=== PATIENT | female | born 2000 | race African-American/Black ===

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

== ENCOUNTER 2019-01-18 15:46 | Inpatient (IN) | payer OTHER ==
[~2019-01-18] VITALS: Ht 160 cm; Wt 78.6 kg
[~2019-01-18 15:46] MED LIST: ALBU8HFA IH; QUET25TA34 PO; QUET50TA PO
[2019-01-18 16:32] LABS: BASOPHILS % (AUTO) 0.7 % (0.0-2.0); EOSINOPHILS % (AUTO) 0.6 % (1.0-6.0); HEMATOCRIT 37.6 % (36-46); HEMOGLOBIN 12.1 g/dL (12.0-16.0); LYMPHOCYTES # (AUTO) 3.8 K/uL (1.0-4.8); LYMPHOCYTES % (AUTO) 38.4 % (22.0-44.0); MEAN CORPUSCULAR HEMOGLOBIN 28.5 pg (26.0-34.0); MEAN CORPUSCULAR HGB CONC 32.3 G/dL (31.0-37.0); MEAN CORPUSCULAR VOLUME 88 fL (80-100); MONOCYTES # (AUTO) 0.6 K/uL (0.1-1.0); MONOCYTES % (AUTO) 5.9 % (2.0-9.0); NEUTROPHILS # (AUTO) 5.4 K/uL (1.8-7.7); NEUTROPHILS % (AUTO) 54.4 % (40.0-70.0); PLATELET COUNT (AUTO) 307 K/uL (150-450); RED BLOOD CELL COUNT(AUTO) 4.26 MIL/uL (4.00-5.20); RED CELL DISTRIBUTION WIDTH 15.2 % (11.5-14.5)
[2019-01-18 16:41] LABS: ANION GAP 9 mmol/L (8-16); CALCIUM, TOTAL 9.1 mg/dL (8.8-10.5); CARBON DIOXIDE 25 mmol/L (22-29); CHLORIDE 106 mmol/L (98-107); CREATININE 0.74 mg/dL (0.60-1.30); GLOMERULAR FILTR. RATE CALC > 60 mL/min (>60); GLUCOSE,RANDOM 72 mg/dL (70-110); POTASSIUM 3.6 mmol/L (3.5-5.1); SODIUM SERUM 140 mmol/L (136-145); UREA NITROGEN, BLOOD 7 mg/dL (7-18)
[2019-01-18 16:49] LABS: ALANINE AMINOTRANSFERASE 21 U/L (12-78); ALBUMIN 3.2 g/dL (3.4-5.0); ALKALINE PHOSPHATASE 92 U/L (46-116); ASPARTATE AMINOTRANSFERASE 19 U/L (15-37); BILIRUBIN,TOTAL 0.2 mg/dL (0.1-1.0); TOTAL PROTEIN, SERUM 6.9 g/dL (6.4-8.2)
[2019-01-18 17:10] LABS: AMPHET/METH SCREEN,URINE NEGATIVE (NEGATIVE); BARBITURATE SCREEN, URINE NEGATIVE (NEGATIVE); BENZODIAZEPINES SCREEN,URINE NEGATIVE (NEGATIVE); CANNABINOID SCREEN,URINE NEGATIVE (NEGATIVE); COCAINE SCREEN,URINE NEGATIVE (NEGATIVE); METHADONE SCREEN, URINE NEGATIVE (NEGATIVE); OPIATE SCREEN,URINE NEGATIVE (NEGATIVE); PHENCYCLIDINE SCREEN,URINE NEGATIVE (NEGATIVE)
[2019-01-18] MEDS ORDERED: IBUPROFEN 600 MG TABLET PO ONE (18:15)
[2019-01-18 19:15] VITALS: BP 102/59
[2019-01-18] MEDS ORDERED: ACETAMINOPHEN 325 MG TABLET PO PRN ×2 (19:30→21:30)
[2019-01-18] MEDS ORDERED: 0.9% SODIUM CHLORIDE 10 ML SYRINGE IVP PRN (19:30)
[2019-01-18] MEDS ORDERED: NICOTINE 14 MG/24 HOUR PATCH TD PRN (21:30)
[2019-01-18] MEDS ORDERED: CloNIDine HCL 0.1 MG TABLET PO PRN (21:30)
[2019-01-18] MEDS ORDERED: ALBUTEROL SULFATE HFA 90 MCG/PUFF 8 GM INHALER IH PRN (21:30)
[2019-01-18] MEDS ORDERED: DOCUSATE SODIUM 100 MG CAPSULE PO PRN (21:30)
[2019-01-18] MEDS ORDERED: GuaiFENesin/D-METHORPHAN [SUGAR-FREE] 200-20MG/10 ML SYRUP UDCUP PO PRN (21:30)
[2019-01-18] MEDS ORDERED: PETROLATUM,WHITE 28 GM JELLY TP PRN (21:30)
[2019-01-18] MEDS ORDERED: MAG HYDROX/AL HYDROX/SIMETH ES 30 ML SUSPENSION UDCUP PO PRN (21:30)
[2019-01-18] MEDS ORDERED: ONDANSETRON HCL 4 MG TABLET PO PRN (21:30)
[2019-01-18] MEDS ORDERED: IBUPROFEN 400 MG TABLET PO PRN (21:30)
[2019-01-18] MEDS ORDERED: MAGNESIUM HYDROXIDE SUSPENSION 30 ML UDCUP PO PRN (21:30)
[2019-01-18] MEDS ORDERED: LOPERAMIDE HCL 2 MG CAPSULE PO PRN (21:30)
[2019-01-18 23:48] VITALS: BP 101/51
[2019-01-19 04:43] VITALS: BP 99/67
[2019-01-19 06:26] LABS: THYROID STIMULATING HORMONE 1.11 uIU/mL (0.36-3.74)
[2019-01-19 09:01] VITALS: BP 93/52
[2019-01-19] MEDS ORDERED: SODIUM CHLORIDE 0.9% 250 ML IV ONE (11:45)
[2019-01-19 12:01] LABS: APPEARANCE,URINE CLEAR (CLEAR); BILIRUBIN,URINE NEGATIVE (NEGATIVE); GLUCOSE, URINE (UA) NEGATIVE (NEGATIVE); KETONES,URINE NEGATIVE (NEGATIVE); LEUKOCYTE ESTERASE ,URINE NEGATIVE (NEGATIVE); NITRATE,URINE NEGATIVE (NEGATIVE); OCCULT BLOOD,URINE NEGATIVE (NEGATIVE); PROTEIN,URINE NEGATIVE (NEGATIVE); UROBILINOGEN,URINE 0.2 mg/dL (<=1.0)
[2019-01-19 12:24] LABS: AMPHET/METH SCREEN,URINE NEGATIVE (NEGATIVE); BARBITURATE SCREEN, URINE NEGATIVE (NEGATIVE); BENZODIAZEPINES SCREEN,URINE NEGATIVE (NEGATIVE); CANNABINOID SCREEN,URINE NEGATIVE (NEGATIVE); COCAINE SCREEN,URINE NEGATIVE (NEGATIVE); METHADONE SCREEN, URINE NEGATIVE (NEGATIVE); OPIATE SCREEN,URINE NEGATIVE (NEGATIVE)
[2019-01-19 12:25] LABS: PHENCYCLIDINE SCREEN,URINE NEGATIVE (NEGATIVE)
[2019-01-19 13:15] VITALS: BP 106/57
[2019-01-19 16:03] VITALS: BP 110/61
[2019-01-19 20:15] VITALS: BP 100/53
[2019-01-20] VITALS (7 sets, daily range): BP systolic 88–106; BP diastolic 42–64
[2019-01-20] MEDS ORDERED: SODIUM CHLORIDE 0.9% 500 ML IV ONE (11:00)
[2019-01-20] MEDS: SERTRALINE HCL 50 MG TABLET PO SCH (20:19)
[2019-01-21 00:08] VITALS: BP 111/55
[2019-01-21 05:26] VITALS: BP 94/58
[2019-01-21 07:55] VITALS: BP 106/60
[2019-01-21 11:34] VITALS: BP 113/66
[2019-01-21 15:54] VITALS: BP 115/73
[2019-01-21] MEDS: SERTRALINE HCL 50 MG TABLET PO SCH (20:18)
[2019-01-21 20:40] VITALS: BP 104/58
[2019-01-22 00:10] VITALS: BP 110/70
[2019-01-22 04:50] VITALS: BP 128/60
[2019-01-22 08:23] VITALS: BP 119/57
[2019-01-22] MEDS ORDERED: SERT50TA12 PO (12:00)
[2019-01-22 12:15] VITALS: BP 116/64
== END 2019-01-22 14:10 | DRG 641 ==
LOC: EMS 15:47 → 6S 18:50
PROVIDERS: ADMIT Internal Medicine; ATTEND Internal Medicine
DX: E87.1 Hypo-osmolality and hyponatremia (principal); R45.851 Suicidal ideations; F33.2 Major depressive disorder, recurrent severe without psychotic features; J45.909 Unspecified asthma, uncomplicated; Z79.899 Other long term (current) drug therapy; Z91.010 Allergy to peanuts
CPT/HCPCS: 80307; 83036; 84443; 87081; G0480; J7040; J7050

== ENCOUNTER 2019-07-13 19:01 | Inpatient (IN) | payer OTHER ==
[~2019-07-13] VITALS: Ht 162.6 cm; Wt 68.2 kg
[~2019-07-13 19:01] MED LIST changes: -ALBU8HFA IH; -QUET25TA34 PO; -QUET50TA PO; +SERT50TA12 PO
[2019-07-13] MEDS ORDERED: ONDANSETRON HCL 4 MG/2 ML VIAL IVP PRN (19:45)
[2019-07-13] MEDS ORDERED: IPRATROPIUM BROMIDE 0.5 MG/2.5 ML NEB SOLUTION NEB PRN (19:45)
[2019-07-13] MEDS ORDERED: ZOLPIDEM TARTRATE 5 MG TABLET PO PRN (19:45)
[2019-07-13] MEDS ORDERED: BISACODYL 10 MG RECTAL RECTAL SUPPOSITORY PR PRN (19:45)
[2019-07-13] MEDS ORDERED: ACETAMINOPHEN 325 MG TABLET PO PRN (19:45)
[2019-07-13] MEDS ORDERED: ALBUTEROL SULFATE 2.5 MG/0.5 ML NEB SOLUTION NEB PRN (19:45)
[2019-07-13] MEDS ORDERED: MAGNESIUM HYDROXIDE SUSPENSION 30 ML UDCUP PO PRN (19:45)
[2019-07-13 19:46] LABS: AMPHET/METH SCREEN,URINE NEGATIVE (NEGATIVE); BARBITURATE SCREEN, URINE NEGATIVE (NEGATIVE); BENZODIAZEPINES SCREEN,URINE NEGATIVE (NEGATIVE); CANNABINOID SCREEN,URINE NEGATIVE (NEGATIVE); COCAINE SCREEN,URINE NEGATIVE (NEGATIVE); METHADONE SCREEN, URINE NEGATIVE (NEGATIVE); OPIATE SCREEN,URINE NEGATIVE (NEGATIVE)
[2019-07-13 19:47] LABS: EOSINOPHILS % (AUTO) 0.6 % (1.0-6.0); HEMATOCRIT 40.3 % (36-46); HEMOGLOBIN 13.5 g/dL (12.0-16.0); LYMPHOCYTES # (AUTO) 3.3 K/uL (1.0-4.8); LYMPHOCYTES % (AUTO) 40.6 % (22.0-44.0); MEAN CORPUSCULAR HEMOGLOBIN 29.1 pg (26.0-34.0); MEAN CORPUSCULAR HGB CONC 33.5 G/dL (31.0-37.0); MEAN CORPUSCULAR VOLUME 87 fL (80-100); MONOCYTES # (AUTO) 0.4 K/uL (0.1-1.0); MONOCYTES % (AUTO) 5.3 % (2.0-9.0); NEUTROPHILS # (AUTO) 4.3 K/uL (1.8-7.7); NEUTROPHILS % (AUTO) 52.5 % (40.0-70.0); PLATELET COUNT (AUTO) 345 K/uL (150-450); RED BLOOD CELL COUNT(AUTO) 4.63 MIL/uL (4.00-5.20)
[2019-07-13 20:00] LABS: PHENCYCLIDINE SCREEN,URINE NEGATIVE (NEGATIVE)
[2019-07-13 20:13] LABS: ANION GAP 10 mmol/L (8-16); CALCIUM, TOTAL 9.5 mg/dL (8.8-10.5); CARBON DIOXIDE 27 mmol/L (22-29); CHLORIDE 102 mmol/L (98-107); GLOMERULAR FILTR. RATE CALC > 60 mL/min (>60); GLUCOSE,RANDOM 71 mg/dL (70-110); POTASSIUM 3.8 mmol/L (3.5-5.1); SODIUM SERUM 139 mmol/L (136-145); UREA NITROGEN, BLOOD 5 mg/dL (7-18)
[2019-07-13 20:19] LABS: ALANINE AMINOTRANSFERASE 27 U/L (12-78); ALBUMIN 3.6 g/dL (3.4-5.0); ALKALINE PHOSPHATASE 90 U/L (46-116); ASPARTATE AMINOTRANSFERASE 33 U/L (15-37); BILIRUBIN,TOTAL 0.2 mg/dL (0.1-1.0); HCG,QUANTITATIVE < 1 mIU/mL (0-6); TOTAL PROTEIN, SERUM 8.3 g/dL (6.4-8.2)
[2019-07-13 21:23] VITALS: BP 120/60
[2019-07-13] MEDS: SERTRALINE HCL 50 MG TABLET PO SCH (23:00)
[2019-07-14 04:47] VITALS: BP 100/63
[2019-07-14 08:33] VITALS: BP 105/67
[2019-07-14 16:39] VITALS: BP 99/53
[2019-07-14 19:45] VITALS: BP 94/55
[2019-07-14] MEDS: SERTRALINE HCL 50 MG TABLET PO SCH (20:53)
[2019-07-14] MEDS: RisperiDONE 2 MG TABLET PO SCH ×3 (20:53→21:00)
[2019-07-15 04:55] VITALS: BP 105/68
[2019-07-15 07:50] VITALS: BP 91/60
[2019-07-15 08:42] LABS: BASOPHILS % (AUTO) 1.8 % (0.0-2.0); EOSINOPHILS % (AUTO) 1.4 % (1.0-6.0); HEMATOCRIT 37.2 % (36-46); HEMOGLOBIN 12.7 g/dL (12.0-16.0); LYMPHOCYTES # (AUTO) 2.8 K/uL (1.0-4.8); LYMPHOCYTES % (AUTO) 46.3 % (22.0-44.0); MEAN CORPUSCULAR HEMOGLOBIN 29.3 pg (26.0-34.0); MEAN CORPUSCULAR HGB CONC 34.2 G/dL (31.0-37.0); MEAN CORPUSCULAR VOLUME 86 fL (80-100); MONOCYTES # (AUTO) 0.5 K/uL (0.1-1.0); MONOCYTES % (AUTO) 8.6 % (2.0-9.0); NEUTROPHILS # (AUTO) 2.5 K/uL (1.8-7.7); NEUTROPHILS % (AUTO) 41.9 % (40.0-70.0); PLATELET COUNT (AUTO) 349 K/uL (150-450); RED BLOOD CELL COUNT(AUTO) 4.34 MIL/uL (4.00-5.20); RED CELL DISTRIBUTION WIDTH 13.8 % (11.5-14.5)
[2019-07-15 08:50] LABS: ANION GAP 3 mmol/L (8-16); CALCIUM, TOTAL 9.4 mg/dL (8.8-10.5); CARBON DIOXIDE 31 mmol/L (22-29); CHLORIDE 103 mmol/L (98-107); CREATININE 0.94 mg/dL (0.60-1.30); GLOMERULAR FILTR. RATE CALC > 60 mL/min (>60); GLUCOSE,RANDOM 84 mg/dL (70-110); POTASSIUM 4.2 mmol/L (3.5-5.1); SODIUM SERUM 137 mmol/L (136-145); UREA NITROGEN, BLOOD 9 mg/dL (7-18)
[2019-07-15] MEDS ORDERED: IOVERSOL 350 MG/ML 100 ML VIAL ONE ×2 (08:52→12:45)
[2019-07-15] MEDS ORDERED: SODIUM CHLORIDE 0.9% 100 ML ONE ×2 (08:53→12:45)
[2019-07-15 08:56] LABS: ALANINE AMINOTRANSFERASE 28 U/L (12-78); ALBUMIN 3.3 g/dL (3.4-5.0); ALKALINE PHOSPHATASE 69 U/L (46-116); AMYLASE 85 U/L (25-115); ASPARTATE AMINOTRANSFERASE 18 U/L (15-37); BILIRUBIN,TOTAL 0.3 mg/dL (0.1-1.0); LIPASE 86 U/L (73-393); TOTAL PROTEIN, SERUM 7.7 g/dL (6.4-8.2)
[2019-07-15] MEDS ORDERED: BARIUM SULFATE 0.1% SUSPENSION 450 ML BOTTLE ONE (09:58)
[2019-07-15 12:36] VITALS: BP 98/58
[2019-07-15 16:46] VITALS: BP 112/78
[2019-07-15 20:08] VITALS: BP 103/68
[2019-07-15] MEDS: SERTRALINE HCL 50 MG TABLET PO SCH (20:40)
[2019-07-15] MEDS: RisperiDONE 2 MG TABLET PO SCH (21:00)
[2019-07-16 04:52] VITALS: BP 101/66
[2019-07-16 07:48] VITALS: BP 103/63
[2019-07-16 20:10] VITALS: BP 119/68
[2019-07-16] MEDS: RisperiDONE 2 MG TABLET PO SCH (21:00)
[2019-07-16] MEDS: SERTRALINE HCL 50 MG TABLET PO SCH (22:17)
[2019-07-17 05:05] VITALS: BP 108/62
[2019-07-17 08:40] VITALS: BP 97/56
[2019-07-17] MEDS ORDERED: SERT50TA12 PO (14:54)
[2019-07-17 15:42] VITALS: BP 107/69
== END 2019-07-17 16:41 | DRG 885 ==
LOC: EMS 19:01 → 6S 20:00
PROVIDERS: ADMIT Hospitalist; ATTEND Hospitalist
DX: F25.1 Schizoaffective disorder, depressive type (principal); R45.851 Suicidal ideations; Z91.010 Allergy to peanuts; J45.909 Unspecified asthma, uncomplicated; F43.10 Post-traumatic stress disorder, unspecified; Z91.5 Personal history of self-harm
CPT/HCPCS: 74177; G0480; J7050